=== PATIENT | male | born 1985 | race Caucasian/White ===

== ENCOUNTER 2017-08-27 09:24 | Emergency (ER) | payer OTHER ==
--- NOTE | 2017-08-27 10:58 | UC ---
Dari Fuchs Jason, scribed for Mitzy Carballo MD on 08/27/17 at 1044 . Back Pain HPI - HPI Summary HPI Summary: This patient is a 32 year old M presenting to [facility] [place] with a chief complaint of back pain since 1 week ago. The patient states that he has been experiencing back pain for about a week which he believes might be due to an influenza-like illness. The patient rates the pain 4/10 in severity. Symptoms aggravated by nothing. Symptoms alleviated by nothing. Patient reports MCCLURE, neck pain, chills, sinus congestion, mild shoulder pain, ear congestion, nonproductive cough, mild SOB, gurgling in the chest for a few seconds, and occasional dizziness. Patient denies fever. Additionally the patient states that he has been taking ibuprofen, Dayquil and Nyquil for about 3 days without signs of improvement, and received a flu-shot 4 weeks ago. - History of Current Complaint Chief Complaint: UCRespiratory Stated Complaint: BACK PAIN, CHEST CONGESTION Hx Obtained From: Patient Onset/Duration: Gradual Onset, Lasting Weeks - 1 week ago, Still Present Timing: Constant Pain Intensity: 4 Pain Scale Used: 0-10 Numeric Aggravating Factor(s): Nothing Alleviating Factor(s): Nothing Associated Signs And Symptoms: Positive: Other - MCCLURE, neck pain, chills, sinus congestion, mild shoulder pain, ear congestion, nonproductive cough, mild SOB, gurgling in the chest for a few seconds, and occasional dizziness. Patient denies fever. - Allergies/Home Medications Allergies/Adverse Reactions: Allergies Allergy/AdvReac Type Severity Reaction Status Date / Time Seasonal Allergy Sneezing Uncoded 08/27/17 09:48 Home Medications: Home Medications Dayquil 30 ml PO DAILY 08/27/17 [History Confirmed 08/27/17] Fluticasone NASAL SPRAY 50MCG* [Flonase NASAL SPRAY 50MCG*] 1 spray BOTH NARES DAILY 08/27/17 [History Confirmed 08/27/17] [id number] [Nyquil Severe Cold/Flu 5-6.25-10-325 mg/15Ml] 30 ml PO BEDTIME PRN 08/27/17 [History Confirmed 08/27/17] PMH/Surg Hx/FS Hx/Imm Hx Previously Healthy: Yes Endocrine History: Other - negative DM Other Endocrine History: negative DM Respiratory History: Other - negative asthma Other Respiratory History: negative asthma - Surgical History Surgical History: Yes Surgery Procedure, Year, and Place: tonsillectomy - Family History Known Family History: Positive: Diabetes - grandmother Negative: Blood Disorder - Social History Occupation: Employed Full-time Alcohol Use: Occasionally Substance Use Type: None Smoking Status (MU): Never Smoked Tobacco - Immunization History Most Recent Influenza Vaccination: 07/25 Review of Systems Constitutional: Chills Skin: Negative Eyes: Negative ENT: Sinus Congestion, Other - ear congestion Respiratory: Shortness Of Breath - mild, Cough - nonproductive Cardiovascular: Other - "gurgling in the chest for a few seconds", without associated pre-syncopy or shortness of breath. Gastrointestinal: Negative Genitourinary: Negative Motor: Negative Neurovascular: Negative Musculoskeletal: Other: - Neck pain, mild shoulder pain Neurological: Headache, Other - occasional dizziness Psychological: Negative All Other Systems Reviewed And Are Negative: Yes Physical Exam Triage Information Reviewed: Yes Appearance: Ill-Appearing - looks mildly fatigued. Vital Signs: Initial Vital Signs Temp 98.4 F 08/27/17 09:41 Pulse 90 08/27/17 09:41 Resp 18 08/27/17 09:41 BP 140/72 08/27/17 09:41 Pulse Ox 100 08/27/17 09:41 Eye Exam: Normal ENT: Positive: Pharynx normal - past tonsillectomy Neck: Positive: Supple, Nontender, Enlarged Nodes @ - one posterior cervical mobile 1.5 cm node, no other adenopathy. Respiratory: Positive: Lungs clear, Normal breath sounds Cardiovascular: Positive: RRR, No Murmur Abdomen Description: Positive: Nontender, No Organomegaly, Soft Musculoskeletal: Positive: ROM Intact, Other: - tenderness in paraspinal muscles in the high to mid lumbar area. Neurological: Positive: Alert, Muscle Tone Normal Psychological Exam: Normal Skin Exam: Normal Back Pain Course/Dx - Course Course Of Treatment: High blood pressure noted. symptomatic treatment of viral infection. NSAID and chiropractic treatment of back pain - Differential Dx/Diagnosis Differential Diagnosis/HQI/PQRI: Strain, Sprain, Other - flu, viral syndrome. Provider Diagnoses: low back strain; viral syndrome. Discharge - Discharge Plan Condition: Stable Disposition: HOME Patient Education Materials: Low Back Strain (ED), Viral Syndrome (ED) Additional Instructions: As discussed, your back pain is most consistent with a strain, and the remaining symptoms suggest a viral illness. You might try aleve (naproxen) 220mg, taking 2 tablets every 12 hours for pain. Chiropractic treatment should be helpful. The documentation as recorded by the Dari bello Jason accurately reflects the service I personally performed and the decisions made by me, Mitzy Carballo MD.
== END 2017-08-27 11:02 | disposition home or self-care (01) ==
LOC: UCEAST 09:24
DX: S39.012A Strain of muscle, fascia and tendon of lower back, initial encounter (principal); X58.XXXA Exposure to other specified factors, initial encounter; Y93.9 Activity, unspecified; Y92.9 Unspecified place or not applicable; Y99.9 Unspecified external cause status; B34.9 Viral infection, unspecified
CPT/HCPCS: 99201; G0463

== ENCOUNTER 2017-09-06 16:39 | Emergency (ER) | payer OTHER ==
[2017-09-06 16:46] VITALS: BP 141/71
--- NOTE | 2017-09-06 17:04 | UC ---
Ear Complaint HPI - HPI Summary HPI Summary: Pt presents with left ear pain for 3 days. 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 He denies fever, cough, SOB, chest pain, abdominal pain, or N/V/D /C - History of Current Complaint Chief Complaint: UCRespiratory Stated Complaint: EAR COMPLAINT Time Seen by Provider: 09/06/17 17:04 Hx Obtained From: Patient - Allergies/Home Medications Allergies/Adverse Reactions: Allergies Allergy/AdvReac Type Severity Reaction Status Date / Time Seasonal Allergy Sneezing Uncoded 09/06/17 16:45 PMH/Surg Hx/FS Hx/Imm Hx Previously Healthy: Yes - Surgical History Surgical History: Yes Surgery Procedure, Year, and Place: tonsillectomy - Family History Known Family History: Positive: Diabetes - grandmother Negative: Blood Disorder - Social History Occupation: Employed Full-time Lives: Alone Alcohol Use: Occasionally Substance Use Type: None Smoking Status (MU): Never Smoked Tobacco - Immunization History Most Recent Influenza Vaccination: 07/25 Review of Systems Constitutional: Negative Skin: Negative Eyes: Negative ENT: Ear Ache Respiratory: Negative Cardiovascular: Negative Gastrointestinal: Negative All Other Systems Reviewed And Are Negative: Yes Physical Exam Triage Information Reviewed: Yes Appearance: Well-Appearing, Well-Nourished Vital Signs: Initial Vital Signs Temp 97.3 F 09/06/17 16:43 Pulse 76 09/06/17 16:43 Resp 16 09/06/17 16:43 BP 141/71 09/06/17 16:43 Pulse Ox 100 09/06/17 16:43 Vital Signs Reviewed: Yes Eyes: Positive: Conjunctiva Clear. Negative: Conjunctiva Inflamed, Discharge ENT: Positive: Hearing grossly normal, Pharynx normal, TMs normal, Uvula midline. Negative: Pharyngeal erythema, Nasal congestion, Nasal drainage, TM bulging, TM dull, TM red, Tonsillar swelling, Tonsillar exudate, Sinus tenderness Dental: Negative: Percussion Tenderness @, Gross Decay/Caries @, Dental Fracture @, Abscess @, Cellulitis @ Neck: Positive: Supple, Nontender, No Lymphadenopathy Respiratory: Positive: Chest non-tender, Lungs clear, Normal breath sounds, No respiratory distress, No accessory muscle use Cardiovascular: Positive: RRR, No Murmur, Pulses Normal Ear Complaint Course/Dx - Course Course Of Treatment: POC Strep was negative. Exam was benign with no clear reason for his left ear pain. Advised to try OTC earache drops and monitor symptoms. If he develops any drainage, increased pain, fever, cough, or ST he will RTC or see PCP. - Differential Dx/Diagnosis Provider Diagnoses: Left ear pain Discharge - Discharge Plan Condition: Stable Disposition: HOME Patient Education Materials: Earache (ED) Referrals: No Primary Care Phys,NOPCP [Primary Care Provider] - Additional Instructions: If you develop a fever, SOB, chest pain, new or worsening symptoms - please call your PCP or go to the ED. Try OTC earache drops for relief. Your blood pressure was high at todays visit. Please see your primary provider within 4 weeks for recheck and re-evaluation.
== END 2017-09-06 18:00 | disposition home or self-care (01) ==
LOC: UCEAST 16:39
DX: H92.02 Otalgia, left ear (principal)
CPT/HCPCS: 87651; 99211; G0463

== ENCOUNTER 2018-04-05 17:06 | Emergency (ER) | payer OTHER ==
[2018-04-05 17:36] VITALS: BP 125/79
--- NOTE | 2018-04-05 18:55 | ED ---
Abdominal Pain/Male - HPI Summary HPI Summary: Patient is a 32-year-old male presenting to the with complaint of left lower abdominal pain. He states he was swimming approximately 1.5 weeks ago and noticed the pain in his lower abdomen. He endorses a small amount of radiation into the groin. Denies any ecchymosis, swelling, erythema or bulge to the area. He has never had a hernia in the past. He is extremely active and notices the pain more with more activity. Denies taking any [id number] medications for relief. Denies any abdominal surgeries. Continues to eat and drink okay. Denies any urinary symptoms or back pain. - History of Current Complaint Hx Obtained From: Patient Onset/Duration: Gradual Onset Timing: Constant Severity Initially: Moderate Severity Currently: Moderate Pain Intensity: 2 Pain Scale Used: 0-10 Numeric Location: Discrete At: LLQ Radiates: Yes Radiates to: Inguinal, Other - groin Character: Cramping Aggravating Factor(s): Nothing Alleviating Factor(s): Nothing Associated Signs And Symptoms: Positive: Negative <Jelena Vaughan - Last Filed: 04/05/18 18:51> <Ashley Ritchie - Last Filed: 04/05/18 20:56> - History of Current Complaint Chief Complaint: UCAbdominalPain Stated Complaint: ABDOMINAL PAIN Time Seen by Provider: 04/05/18 17:45 - Allergies/Home Medications Allergies/Adverse Reactions: Allergies Allergy/AdvReac Type Severity Reaction Status Date / Time Seasonal Allergy Sneezing Uncoded 04/05/18 17:37 Home Medications: Home Medications Cetirizine* [ZyrTEC 10 MG TAB*] 10 mg PO DAILY 04/05/18 [History Confirmed 04/05] PMH/Surg Hx/FS Hx/Imm Hx Previously Healthy: Yes Endocrine/Hematology History: Denies: Hx Diabetes, Hx Thyroid Disease Cardiovascular History: Denies: Hx Hypertension Respiratory History: Reports: Hx Asthma - as a child Denies: Hx Chronic Obstructive Pulmonary Disease (COPD) GI History: Denies: Hx Ulcer - Surgical History Surgery Procedure, Year, and Place: tonsillectomy - Immunization History Hx Pertussis Vaccination: No Immunizations Up to Date: Unable to Obtain/Confirm Infectious Disease History: No Infectious Disease History: Reports: Hx Shingles Denies: Hx Hepatitis, Hx Human Immunodeficiency Virus (HIV), History Other Infectious Disease, Traveled Outside the [place] in Last 30 Days - Family History Known Family History: Positive: Diabetes - grandmother Negative: Blood Disorder - Social History Occupation: Employed Full-time Lives: With Family Alcohol Use: None Hx Substance Use: No Substance Use Type: Reports: None Smoking Status (MU): Never Smoked Tobacco <Jelena Vaughan - Last Filed: 04/05/18 18:51> Review of Systems Constitutional: Negative Negative: Fever, Chills, Fatigue, Skin Diaphoresis Cardiovascular: Negative Respiratory: Negative Positive: Abdominal Pain - left lower quadrant pain Genitourinary: Negative Positive: no symptoms reported, see HPI. Negative: burning, dysuria, discharge , frequency, flank pain, hematuria, incontinence, urgency Positive: Myalgia - pain to the left lower quadrant extending to the left groin Skin: Negative All Other Systems Reviewed And Are Negative: Yes <Jelena Vaughan Jelani - Last Filed: 04/05/18 18:51> Physical Exam Triage Information Reviewed: Yes Vital Signs On Initial Exam: Initial Vitals Temp Pulse Resp BP Pulse Ox 98.4 F 74 16 125/79 100 04/05/18 17:32 04/05/18 17:32 04/05/18 17:32 04/05/18 17:32 04/05/18 17:32 Vital Signs Reviewed: Yes Appearance: Positive: Well-Appearing, Well-Nourished Skin: Positive: Warm, Skin Color Reflects Adequate Perfusion Head/Face: Positive: Normal Head/Face Inspection Neck: Positive: Supple, Nontender, No Lymphadenopathy Respiratory/Lung Sounds: Positive: Clear to Auscultation, Breath Sounds Present Cardiovascular: Positive: Normal, RRR Male Genital Exam: Positive: No Hernia, Inguinal Tenderness. Negative: Erythema , Hernia Mass Musculoskeletal: Positive: Normal, Strength/ROM Intact Neurological: Positive: Normal, Alert, Oriented to Person Place, Time Psychiatric: Positive: Normal AVPU Assessment: Alert <Jelena Vaughan Jelani - Last Filed: 04/05/18 18:51> Vital Signs On Initial Exam: Initial Vitals Temp Pulse Resp BP Pulse Ox 98.4 F 74 16 125/79 100 04/05/18 17:32 04/05/18 17:32 04/05/18 17:32 04/05/18 17:32 04/05/18 17:32 <Ashley Ritchie - Last Filed: 04/05/18 20:56> Diagnostics - Vital Signs Vital Signs Temp Pulse Resp BP Pulse Ox 04/05/18 17:32 98.4 F 74 16 125/79 100 <Jelena Vaughan - Last Filed: 04/05/18 18:51> - Vital Signs Vital Signs Temp Pulse Resp BP Pulse Ox 04/05/18 17:32 98.4 F 74 16 125/79 100 <Ashley Ritchie - Last Filed: 04/05/18 20:56> Abdominal Pain Fem Course/Dx - Course Course Of Treatment: Patient is evaluated for acute left lower quadrant pain radiating into the groin. On physical examination there is no obvious sign of bulge representing a hernia. Pain most prominent over the lower rectus abdominis muscle extending to the most superior portion of the groin. <Jelena Vaughan - Last Filed: 04/05/18 18:51> <Ashley Ritchie - Last Filed: 04/05/18 20:56> - Diagnoses Provider Diagnoses: Left groin pain Discharge - Sign-Out/Discharge Documenting (check all that apply): Discharge/Admit/Transfer - Billing Disposition and Condition Condition: STABLE Disposition: Home <Jelena Vaughan - Last Filed: 04/05/18 18:51> - Billing Disposition and Condition Condition: STABLE Disposition: Home <Ashley Ritchie - Last Filed: 04/05/18 20:56> - Discharge Plan Condition: Stable Disposition: HOME Patient Education Materials: Groin Pain (ED) Referrals: Yoel Haskins DO [Primary Care Provider] - Additional Instructions: Likely this is pain overlying the rectus abdominus muscle, possible extending into the groin. Extra-articular muscle and tendon injuries Extra-articular injury of muscles and tendons are the largest source of hip and groin pain in active adults. Among runners and athletes involved in running-based sports, acute muscle strains and tendinopathies are the most common cause. There does not appear to be a hernia. Heat and ice intermittently. You will aggravate the area if you are active - rest when possible. Ibuprofen 600mg three times daily x 3-5 days for inflammation If you develop any worsening symptoms, fevers, chills, urinary complaints - go to the ED Attestation Statement User Type: Provider - I was available for consult. This patient was seen by the DOMONIQUE. The patient was not presented to, seen by, or examined by me. -Asiya <Ashley Ritchie - Last Filed: 04/05/18 20:56>
== END 2018-04-05 18:10 | disposition home or self-care (01) ==
LOC: UCEAST 17:06
DX: R10.32 Left lower quadrant pain (principal); Z91.09 Other allergy status, other than to drugs and biological substances
CPT/HCPCS: 99211; G0463